=== PATIENT | female | born 1945 | race Caucasian/White ===

== ENCOUNTER 2016-06-30 09:25 | Emergency (ER) | payer OTHER ==
[~2016-06-30] VITALS: Ht 165.1 cm; Wt 113.0 kg
[~2016-06-30 09:25] MED LIST: ARIMIDEX1 MG PO; CELECOXIB200 MG PO; CLARITIN,ALAVAR10 MG PO; CRESTOR20 MG PO; DIOVAN HCT 81 TABLET PO; ENDOCET 5-3251 EACH PO; IRON325 M1 PO; LOVENOX40 MG/0.4 SC; METFORMIN HCL500 M1 PO; MOBIC15 MG PO; NORCO 5/3251 TABLET PO; NORVASC10 MG PO; OMEPRAZOLE40 M1 PO; OXYCONTIN10 MG PO; PROZAC40 MG PO; VITAMIN D35000 UNIT PO
[2016-06-30] MEDS ORDERED: ULTRAM50 MG PO (10:27)
[2016-06-30] MEDS ORDERED: SKELAXIN800 MG PO (10:27)
[2016-06-30 11:05] VITALS: BP 118/62
== END 2016-06-30 11:46 | disposition home or self-care (01) ==
LOC: EME → EDBD 09:25 → EME 11:46
PROC: 3E0234Z Introduction of Serum, Toxoid and Vaccine into Muscle, Percutaneous Approach (ICD-10-PCS; principal; 2016-06-30)
DX: S20.312A Abrasion of left front wall of thorax, initial encounter (principal); S50.812A Abrasion of left forearm, initial encounter; E11.9 Type 2 diabetes mellitus without complications; I10 Essential (primary) hypertension; V49.40XA Driver injured in collision with unspecified motor vehicles in traffic accident, initial encounter; Z23 Encounter for immunization; Z85.3 Personal history of malignant neoplasm of breast; Z87.891 Personal history of nicotine dependence
CPT/HCPCS: 99281; 99284